=== PATIENT | male | born 1990 | race Caucasian/White ===

== ENCOUNTER 2016-10-19 09:41 | Emergency (ER) | payer OTHER ==
[~2016-10-19] VITALS: Ht 195.6 cm; Wt 114.0 kg
[~2016-10-19 09:41] MED LIST: ALBUAER3 INH; BACT800T5 PO; FAMO1TAB37 PO; MEDR4PAK PO
[2016-10-19 09:45] VITALS: BP 151/106; PULSE 104; RESP 16; TEMP 98.1; O2SAT 98
--- NOTE | 2016-10-19 10:09 | PD ---
HPI Chief Complaint: Cardiac Complaint Time Seen by Provider: 09:58 Travel History International Travel<30 days: No Contact w/Intl Traveler<30days: No Traveled to known affect area: No History of Present Illness HPI This patient was out shopping with his mother when he had a 5 minute spell. He became dizzy and lightheaded and felt like his heart was racing. Somewhat anxious. He reported being short of breath. He has history of asthma. No fever or injury. No syncope. This point he feels much better. No alleviating factors. Symptoms were moderately severe but now are nonexistent. PFSH Past Medical History Hx Anticoagulant Therapy: No Asthma: Yes Diabetes: No Diminished Hearing: No Respiratory: Yes (ASTHMA IN PAST ) Tetanus Vaccination: < 5 Years Influenza Vaccination: No Past Surgical History Other Surgery: Yes (Skull SX as infant ) Social History Alcohol Use: No Tobacco Use: No Substance Use: No Allergies-Medications (Allergen,Severity, Reaction): Coded Allergies: Neosporin (Verified Adverse Reaction, Severe, Skin blisters , 10/19/16) Reported Meds & Prescriptions Reported Meds & Active Scripts Active No Active Prescriptions or Reported Medications Review of Systems General / Constitutional: No: Fever Eyes: No: Visual changes HENT: Positive: Lightheadedness, No: Headaches Cardiovascular: Positive: Chest Pain or Discomfort, Palpitations Respiratory: Positive: Shortness of Breath (who will), Wheezing Gastrointestinal: No: Abdominal Pain Genitourinary: No: Dysuria Musculoskeletal: No: Pain Skin: No Rash Neurologic: Positive: Dizziness, No: Weakness Psychiatric: No: Depression Endocrine: No: Polydipsia Hematologic/Lymphatic: No: Easy Bruising Physical Exam Narrative GENERAL: Well-nourished, well-developed patient in no apparent distress. SKIN: Focused skin assessment reveals no rash and nodules. Skin is Warm and dry. HEAD: Atraumatic. Normocephalic. EYES: Pupils equal and round. No scleral icterus. No injection or drainage. ENT: No nasal bleeding or discharge. Mucous membranes pink and moist. NECK: Trachea midline. No JVD. CARDIOVASCULAR: Regular rate and rhythm. No murmur appreciated. RESPIRATORY: No accessory muscle use. Clear to auscultation. Breath sounds equal bilaterally. GASTROINTESTINAL: Abdomen soft, non-tender, nondistended. Hepatic and splenic margins not palpable. MUSCULOSKELETAL: No obvious deformities. No clubbing. No cyanosis. No edema. NEUROLOGICAL: Awake and alert. No obvious cranial nerve deficits. Motor grossly within normal limits. Normal speech. PSYCHIATRIC: Appropriate mood and affect; insight and judgment normal. Data Data Last Documented VS Vital Signs Date Time Temp Pulse Resp B/P Pulse Ox O2 Delivery O2 Flow Rate FiO2 10/19/16 10:15 98 Room Air 10/19/16 09:50 16 10/19/16 09:45 98.1 104 151/106 Orders Basic Metabolic Panel (Bmp) (10/19/16 10:05) Complete Blood Count With Diff (10/19/16 10:05) Ckmb (Isoenzyme) Profile (10/19/16 10:05) Troponin I (10/19/16 10:05) Ecg Monitoring (10/19/16 10:05) Iv Access Insert/Monitor (10/19/16 10:05) Oximetry (10/19/16 10:05) Sodium Chloride 0.9% Flush (Ns Flush) (10/19/16 10:15) Labs Laboratory Tests Test 10/19/16 10:00 White Blood Count 9.1 TH/MM3 Red Blood Count 5.76 MIL/MM3 Hemoglobin 16.3 GM/DL Hematocrit 48.1 % Mean Corpuscular Volume 83.5 FL Mean Corpuscular Hemoglobin 28.2 PG Mean Corpuscular Hemoglobin 33.8 % Concent Red Cell Distribution Width 12.4 % Platelet Count 352 TH/MM3 Mean Platelet Volume 6.8 FL Neutrophils (%) (Auto) 62.6 % Lymphocytes (%) (Auto) 28.0 % Monocytes (%) (Auto) 6.5 % Eosinophils (%) (Auto) 2.0 % Basophils (%) (Auto) 0.9 % Neutrophils # (Auto) 5.6 TH/MM3 Lymphocytes # (Auto) 2.6 TH/MM3 Monocytes # (Auto) 0.6 TH/MM3 Eosinophils # (Auto) 0.2 TH/MM3 Basophils # (Auto) 0.1 TH/MM3 CBC Comment DIFF FINAL Differential Comment Sodium Level 141 MEQ/L Potassium Level 4.0 MEQ/L Chloride Level 104 MEQ/L Carbon Dioxide Level 28.0 MEQ/L Anion Gap 9 MEQ/L Blood Urea Nitrogen 15 MG/DL Creatinine 1.10 MG/DL Estimat Glomerular Filtration 80 ML/MIN Rate Random Glucose 97 MG/DL Calcium Level 9.0 MG/DL Total Creatine Kinase 75 U/L Troponin I LESS THAN 0.02 NG/ML MDM Medical Decision Making Medical Screen Exam Complete: Yes Emergency Medical Condition: Yes Medical Record Reviewed: Yes Differential Diagnosis Asthma, cardiac arrhythmia, vasovagal episode, anxiety Narrative Course I have reviewed the patient's electronic medical record. Patient was seen in May 2016 for asthma exacerbation IV placed I reviewed his EKG which shows sinus rhythm without ectopy or ST elevation Extended cardiac monitoring reveals sinus rhythm without ectopy CBC is normal Metabolic profile is normal CK is normal Troponin is normal On recheck the patient is a symptomatically doing well. Stable for outpatient follow-up with his family physician He had a presyncopal episode of unknown etiology but no objective evidence of anything dangerous at this point I don't feel at age 26 with no cardiac history he requires inpatient evaluation for this Diagnosis Primary Impression: Pre-syncope Additional Impressions: Chest pain in adult Shortness of breath Additional Instructions: The patient was advised to follow up with their physician and return if they worsen. Med/Other Pt SpecificInfo: Other Scripts No Active Prescriptions or Reported Meds Disposition: 01 DISCHARGE HOME Condition: Stable Fabian Lopez MD Oct 19, 2016 10:09
[2016-10-19 10:15] VITALS: O2SAT 98
[2016-10-19] MEDS ORDERED: SODIUM CHLORIDE 0.9% FLUSH 10 ML FLUSH IVF PRN (10:15)
[2016-10-19 10:18] LABS: AUTOMATED NEUTROPHIL # 5.6 TH/MM3 (1.8-7.7); BASOPHIL # 0.1 TH/MM3 (0-0.2); BASOPHIL % 0.9 % (0.0-2.0); EOSINOPHIL # 0.2 TH/MM3 (0-0.4); HEMATOCRIT 48.1 % (39.0-51.0); HEMO FLAGS DIFF FINAL; LYMPHOCYTE # 2.6 TH/MM3 (1.0-4.8); MEAN CELL VOLUME 83.5 FL (80.0-100.0); MEAN CORPUSCULAR HEMOGLOBIN 28.2 PG (27.0-34.0); MEAN CORPUSCULAR HGB CONC 33.8 % (32.0-36.0); MONO % 6.5 % (0.0-8.0); NEUT % 62.6 % (16.0-70.0); PLATELET COUNT 352 TH/MM3 (150-450); RED BLOOD COUNT 5.76 MIL/MM3 (4.50-5.90); RED CELL DISTRIBUTION WIDTH 12.4 % (11.6-17.2); WHITE BLOOD COUNT 9.1 TH/MM3 (4.0-11.0)
[2016-10-19 10:30] LABS: CHLORIDE 104 MEQ/L (98-107); SODIUM (NA) 141 MEQ/L (136-145)
[2016-10-19 10:33] LABS: ANION GAP 9 MEQ/L (5-15); BLOOD UREA NITROGEN 15 MG/DL (7-18)
[2016-10-19 10:36] LABS: GLOMERULAR FILTRATION RATE 80 ML/MIN (>89)
[2016-10-19 10:50] LABS: CREATINE KINASE 75 U/L (39-308)
[2016-10-19 11:00] VITALS: BP 140/89; PULSE 88; RESP 16; O2SAT 98
--- NOTE | 2016-10-21 15:36 | EKG ---
Date Performed: 10/19/2016 Time Performed: 09:49:46 PTAGE: 26 years EKG: Sinus tachycardia Poor R wave progression - probable normal variant Since previous tracing, no significant change noted Borderline ECG PREVIOUS TRACING : 10/07/2014 17.48 DOCTOR: Clark Concepcion Interpretating Date/Time 10/21/2016 15:34:30
[2016-11-22] MEDS ORDERED: ALBU6.7H INH (15:33)
== END 2016-10-19 11:10 | disposition home or self-care (01) ==
LOC: PHED 09:41
DX: R55 Syncope and collapse (principal); R07.9 Chest pain, unspecified; R06.02 Shortness of breath; R00.0 Tachycardia, unspecified
CPT/HCPCS: 80048; 82550; 84484; 85025; 93005; 99284

== ENCOUNTER 2017-04-06 10:39 | Emergency (ER) | payer OTHER ==
[~2017-04-06] VITALS: Ht 193 cm; Wt 112.2 kg
[~2017-04-06 10:39] MED LIST changes: +ALBU6.7H INH; -ALBUAER3 INH; -BACT800T5 PO; -FAMO1TAB37 PO; -MEDR4PAK PO
[2017-04-06 10:49] VITALS: BP 160/97; PULSE 102; RESP 16; TEMP 98.1; O2SAT 100
--- NOTE | 2017-04-06 11:35 | PD ---
HPI Chief Complaint: Dizziness Time Seen by Provider: 11:28 Travel History International Travel<30 days: No Contact w/Intl Traveler<30days: No Traveled to known affect area: No History of Present Illness HPI This 27-year-old male says about an hour ago he had a fairly abrupt onset of lightheadedness and shortness of breath. He has had asthma in the past but he says it didn't really feel like his asthma. He does not have any chest pain he does not smoke. A little bit lightheadedness now but he does feel a bit better. He did not have any chest pain. PFSH Past Medical History Hx Anticoagulant Therapy: No Asthma: Yes Diabetes: No Diminished Hearing: No Respiratory: Yes (ASTHMA IN PAST ) Influenza Vaccination: No ?: Not Past Surgical History Other Surgery: Yes (Skull SX as ) Social History Alcohol Use: No Tobacco Use: No Substance Use: No Allergies-Medications (Allergen,Severity, Reaction): Coded Allergies: bacitracin (Unverified Adverse Reaction, Severe, Skin blisters , 04/06/17) gramicidin D (Unverified Adverse Reaction, Severe, Skin blisters , 04/06/17 ) neomycin (Unverified Adverse Reaction, Severe, Skin blisters , 04/06/17) polymyxin B (Unverified Adverse Reaction, Severe, Skin blisters , 04/06/17) Reported Meds & Prescriptions Reported Meds & Active Scripts Active Review of Systems General / Constitutional: No: Fever, Chills Eyes: No: Diploplia, Blurred Vision HENT: Positive: Lightheadedness, No: Headaches, Vertigo Cardiovascular: No: Chest Pain or Discomfort Respiratory: Positive: Shortness of Breath Gastrointestinal: No: Nausea, Vomiting Genitourinary: No: Urgency, Frequency Musculoskeletal: No: Myalgias, Arthralgias Hematologic/Lymphatic: No: Easy Bruising Physical Exam Narrative GENERAL: Well-developed male SKIN: Focused skin assessment warm/dry. HEAD: Atraumatic. Normocephalic. EYES: Pupils equal and round. No scleral icterus. No injection or drainage. ENT: No nasal bleeding or discharge. Mucous membranes pink and moist. NECK: Trachea midline. No JVD. CARDIOVASCULAR: Regular rate and rhythm. No murmur appreciated. RESPIRATORY: No accessory muscle use. Clear to auscultation. Breath sounds equal bilaterally. GASTROINTESTINAL: Abdomen soft, non-tender, nondistended. Hepatic and splenic margins not palpable. MUSCULOSKELETAL: No obvious deformities. No clubbing. No cyanosis. No edema. NEUROLOGICAL: Awake and alert. No obvious cranial nerve deficits. Motor grossly within normal limits. Normal speech. PSYCHIATRIC: Appropriate mood and affect; insight and judgment normal. Data Data Last Documented VS Vital Signs Date Time Temp Pulse Resp B/P (MAP) Pulse Ox O2 Delivery O2 Flow Rate FiO2 04/06/17 11:30 18 96 Room Air 04/06/17 10:49 98.1 102 160/97 (118) Orders Orders Complete Blood Count With Diff (04/06/17 11:33) Basic Metabolic Panel (Bmp) (04/06/17 11:33) Chest, Single Ap (04/06/17 11:33) Labs Laboratory Tests Test 04/06/17 11:40 White Blood Count 9.0 TH/MM3 Red Blood Count 5.55 MIL/MM3 Hemoglobin 16.1 GM/DL Hematocrit 47.4 % Mean Corpuscular Volume 85.5 FL Mean Corpuscular Hemoglobin 29.0 PG Mean Corpuscular Hemoglobin Concent 34.0 % Red Cell Distribution Width 12.8 % Platelet Count 378 TH/MM3 Mean Platelet Volume 7.0 FL Neutrophils (%) (Auto) 65.6 % Lymphocytes (%) (Auto) 26.3 % Monocytes (%) (Auto) 6.0 % Eosinophils (%) (Auto) 1.0 % Basophils (%) (Auto) 1.1 % Neutrophils # (Auto) 5.9 TH/MM3 Lymphocytes # (Auto) 2.4 TH/MM3 Monocytes # (Auto) 0.5 TH/MM3 Eosinophils # (Auto) 0.1 TH/MM3 Basophils # (Auto) 0.1 TH/MM3 CBC Comment DIFF FINAL Differential Comment Blood Urea Nitrogen 13 MG/DL Creatinine 0.99 MG/DL Random Glucose 100 MG/DL Calcium Level 9.4 MG/DL Sodium Level 139 MEQ/L Potassium Level 4.1 MEQ/L Chloride Level 104 MEQ/L Carbon Dioxide Level 28.7 MEQ/L Anion Gap 6 MEQ/L Estimat Glomerular Filtration Rate 89 ML/MIN MDM Medical Decision Making Medical Screen Exam Complete: Yes Emergency Medical Condition: Yes Medical Record Reviewed: Yes Differential Diagnosis Differential includes asthma, URI, anxiety Narrative Course Lab work is normal. Chest x-ray is negative. His oxygen saturation is under percent. He does appear somewhat anxious and I suspect this may be related to anxiety. He reports feeling somewhat better and I don't think an anxiolytic is needed at this time. He is stable for discharge Diagnosis Primary Impression: Dyspnea Additional Instructions: Return as needed Disposition: 01 DISCHARGE HOME Condition: Stable Tom Fowler MD Apr 06, 2017 11:35
[2017-04-06 11:50] LABS: AUTOMATED NEUTROPHIL # 5.9 TH/MM3 (1.8-7.7); BASOPHIL # 0.1 TH/MM3 (0-0.2); BASOPHIL % 1.1 % (0.0-2.0); EOSINOPHIL # 0.1 TH/MM3 (0-0.4); HEMATOCRIT 47.4 % (39.0-51.0); LYMPH % 26.3 % (9.0-44.0); LYMPHOCYTE # 2.4 TH/MM3 (1.0-4.8); MEAN CELL VOLUME 85.5 FL (80.0-100.0); NEUT % 65.6 % (16.0-70.0); PLATELET COUNT 378 TH/MM3 (150-450); RED BLOOD COUNT 5.55 MIL/MM3 (4.50-5.90); RED CELL DISTRIBUTION WIDTH 12.8 % (11.6-17.2)
[2017-04-06 11:54] LABS: HEMO FLAGS DIFF FINAL
[2017-04-06 12:00] LABS: POTASSIUM 4.1 MEQ/L (3.5-5.1)
[2017-04-06 12:03] LABS: BICARBONATE 28.7 MEQ/L (21.0-32.0)
--- NOTE | 2017-04-06 12:18 | RADRPT ---
EXAM DATE/TIME: 04/06/2017 12:09 [facility] COMPARISON: CHEST PA & LAT, October 07, 2014, 17:53. INDICATIONS : Short of breath MEDICAL HISTORY : None. SURGICAL HISTORY : None. ENCOUNTER: Initial ACUITY: 1 day PAIN SCORE: 0/10 LOCATION: Bilateral chest FINDINGS: A single view of the chest demonstrates the lungs to be symmetrically aerated without evidence of mas s, infiltrate or effusion. The cardiomediastinal contours are unremarkable. Osseous structures are intact. CONCLUSION: 1. No acute cardiopulmonary findings. Tay Best MD on April 06, 2017 at 12:16 Board Certified Radiologist. This report was verified electronically.
[2017-04-06 12:30] VITALS: BP 128/81; PULSE 78; RESP 16; O2SAT 97
== END 2017-04-06 13:25 | disposition home or self-care (01) ==
LOC: PHED 10:39
DX: R06.00 Dyspnea, unspecified (principal); R42 Dizziness and giddiness; Z87.09 Personal history of other diseases of the respiratory system
CPT/HCPCS: 71010; 80048; 85025; 99284

== ENCOUNTER 2017-06-07 15:59 | Emergency (ER) | payer OTHER ==
[~2017-06-07 15:59] MED LIST changes: -ALBU6.7H INH; +CLAR10CA3 PO; +SERT-132 PO
[2017-06-07 16:13] VITALS: BP 143/100; PULSE 108; RESP 18; TEMP 97.8; O2SAT 100
[2017-06-07] MEDS ORDERED: SODIUM CHLOR 0.9% 1000 ML INJ 1,000 ML IV SCH (16:24)
[2017-06-07] MEDS ORDERED: hydrOXYzine PAMOATE 25 MG CAP PO ONE (16:30)
[2017-06-07] MEDS ORDERED: SODIUM CHLORIDE 0.9% FLUSH 10 ML FLUSH IV FLUSH PRN (16:30)
--- NOTE | 2017-06-07 16:37 | PD ---
HPI Chief Complaint: Abdominal Pain Time Seen by Provider: 16:12 Travel History International Travel<30 days: No Contact w/Intl Traveler<30days: No History of Present Illness HPI patient is a 27-year-old male presents emergency department for evaluation of epigastric and left upper quadrant abdominal pain started last night. Also complains of some shortness of breath palpitations and minimal tachycardia. He states his symptoms are moderate in severity, gradually worsening associate with some nausea without vomiting no diarrhea no constipation. No history of long trips or blood clots in his arms or legs. States his symptoms have never happened to him before. Pain is cramping in nature, intermittent, associated signs symptoms as above, no alleviating or exacerbating factors. PFSH Past Medical History Hx Anticoagulant Therapy: No Asthma: Yes Diabetes: No Diminished Hearing: No Respiratory: Yes (ASTHMA IN PAST ) Past Surgical History Other Surgery: Yes (Skull SX as ) Social History Alcohol Use: No Tobacco Use: No Substance Use: No Allergies-Medications (Allergen,Severity, Reaction): Coded Allergies: bacitracin (Unverified Adverse Reaction, Severe, Skin blisters , 05/02/17) gramicidin D (Unverified Adverse Reaction, Severe, Skin blisters , ) neomycin (Unverified Adverse Reaction, Severe, Skin blisters , 05/02/17) polymyxin B (Unverified Adverse Reaction, Severe, Skin blisters , 05/02/17 ) Reported Meds & Prescriptions Reported Meds & Active Scripts Active Sertraline (Sertraline HCl) 50 Mg Tab 50 Mg PO DAILY Claritin (Loratadine) 10 Mg Cap 10 Mg PO DAILY Review of Systems Except as stated in HPI: all other systems reviewed are Neg Physical Exam Narrative GENERAL: Well-developed well-nourished no obvious distress SKIN: Focused skin assessment warm/dry. HEAD: Atraumatic. Normocephalic. EYES: Pupils equal and round. No scleral icterus. No injection or drainage. ENT: No nasal bleeding or discharge. Mucous membranes pink and moist. NECK: Trachea midline. No JVD. CARDIOVASCULAR: Regular rate and rhythm. No murmur appreciated. RESPIRATORY: No accessory muscle use. Clear to auscultation. Breath sounds equal bilaterally. GASTROINTESTINAL: Abdomen soft, non-tender, nondistended. Hepatic and splenic margins not palpable. No rebound no percussive tenderness no guarding. MUSCULOSKELETAL: No obvious deformities. No clubbing. No cyanosis. No edema. NEUROLOGICAL: Awake and alert. No obvious cranial nerve deficits. Motor grossly within normal limits. Normal speech. PSYCHIATRIC: Appropriate mood and affect; insight and judgment normal. Data Data Last Documented VS Vital Signs Date Time Temp Pulse Resp B/P (MAP) Pulse Ox O2 Delivery O2 Flow Rate FiO2 06/07/17 18:53 85 18 140/76 (97) 98 06/07/17 17:34 Room Air 06/07/17 16:13 97.8 Orders Orders Complete Blood Count With Diff (06/07/17 16:24) Comprehensive Metabolic Panel (06/07/17 16:24) Lipase (06/07/17 16:24) Urinalysis - C+S If Indicated (06/07/17 16:24) Iv Access Insert/Monitor (06/07/17 16:24) Ecg Monitoring (06/07/17 16:24) Oximetry (06/07/17 16:24) Sodium Chlor 0.9% 1000 Ml Inj (Ns 1000 M (06/07/17 16:24) Sodium Chloride 0.9% Flush (Ns Flush) (06/07/17 16:30) Hydroxyzine Pamoate (Vistaril) (06/07/17 16:30) D-Dimer (06/07/17 16:24) Ed Discharge Order (06/07/17 18:04) Electrocardiogram (06/07/17 16:05) Labs Laboratory Tests Test 06/07/17 16:45 06/07/17 16:50 Urine Collection Type CLEAN CATCH Urine Color YELLOW Urine Turbidity CLEAR Urine pH 5.5 Urine Specific [place] 1.030 Urine Protein NEG mg/dL Urine Glucose (UA) NEG mg/dL Urine Ketones 15 mg/dL Urine Occult Blood NEG Urine Nitrite NEG Urine Bilirubin NEG Urine Leukocyte Esterase NEG Urine WBC 0-2 /hpf Microscopic Urinalysis Comment CULT NOT INDICATED Urine Collection Time 1645 White Blood Count 10.8 TH/MM3 Red Blood Count 5.57 MIL/MM3 Hemoglobin 15.6 GM/DL Hematocrit 47.0 % Mean Corpuscular Volume 84.3 FL Mean Corpuscular Hemoglobin 27.9 PG Mean Corpuscular Hemoglobin Concent 33.1 % Red Cell Distribution Width 12.7 % Platelet Count 349 TH/MM3 Mean Platelet Volume 6.9 FL Neutrophils (%) (Auto) 68.0 % Lymphocytes (%) (Auto) 24.9 % Monocytes (%) (Auto) 5.7 % Eosinophils (%) (Auto) 0.7 % Basophils (%) (Auto) 0.7 % Neutrophils # (Auto) 7.3 TH/MM3 Lymphocytes # (Auto) 2.7 TH/MM3 Monocytes # (Auto) 0.6 TH/MM3 Eosinophils # (Auto) 0.1 TH/MM3 Basophils # (Auto) 0.1 TH/MM3 CBC Comment DIFF FINAL Differential Comment D-Dimer Quantitative (PE/DVT) LESS THAN 0.19 MG/L FEU Blood Urea Nitrogen 13 MG/DL Creatinine 1.00 MG/DL Random Glucose 104 MG/DL Total Protein 8.5 GM/DL Albumin 4.2 GM/DL Calcium Level 9.1 MG/DL Alkaline Phosphatase 104 U/L Aspartate Amino Transf (AST/SGOT) 23 U/L Alanine Aminotransferase (ALT/SGPT) 63 U/L Total Bilirubin 0.7 MG/DL Sodium Level 139 MEQ/L Potassium Level 3.5 MEQ/L Chloride Level 104 MEQ/L Carbon Dioxide Level 28.6 MEQ/L Anion Gap 6 MEQ/L Estimat Glomerular Filtration Rate 88 ML/MIN Lipase 92 U/L MDM Medical Decision Making Medical Screen Exam Complete: Yes Emergency Medical Condition: Yes Differential Diagnosis Epigastric pain, reflux, pancreatitis, cholecystitis, with the shortness of breath consider PE but highly unlikely. Narrative Course Patient roomed in emergency department, I returned workup unremarkable, mom volunteers that she thinks the patient is just anxious, he was given Benadryl and normal saline tachycardia resolved and patient is feeling better. He is stable for discharge no additional workup is indicated at this time. Discussed symptomatically management follow-up with a primary care physician. Diagnosis Primary Impression: Epigastric abdominal pain Patient Instructions: Abdominal Pain in Children (DC), General Instructions Med/Other Pt SpecificInfo: Prescription(s) given Disposition: 01 DISCHARGE HOME Condition: Stable Manolo Tyler MD Jun 07, 2017 16:37
[2017-06-07 16:50] VITALS: O2SAT 96
[2017-06-07 17:05] LABS: BLOOD, URINE NEG (NEG); GLUCOSE,URINE NEG (NEG); KETONE, URINE 15 mg/dL (NEG); NITRITE,URINE NEG (NEG); PH, URINE 5.5 (5.0-8.5)
[2017-06-07 17:07] LABS: AUTOMATED NEUTROPHIL # 7.3 TH/MM3 (1.8-7.7); BASOPHIL # 0.1 TH/MM3 (0-0.2); BASOPHIL % 0.7 % (0.0-2.0); EOSINOPHIL # 0.1 TH/MM3 (0-0.4); EOSINOPHIL % 0.7 % (0.0-4.0); HEMO FLAGS DIFF FINAL; LYMPH % 24.9 % (9.0-44.0); LYMPHOCYTE # 2.7 TH/MM3 (1.0-4.8); MEAN CELL VOLUME 84.3 FL (80.0-100.0); MEAN CORPUSCULAR HEMOGLOBIN 27.9 PG (27.0-34.0); MEAN CORPUSCULAR HGB CONC 33.1 % (32.0-36.0); MONO % 5.7 % (0.0-8.0); PLATELET COUNT 349 TH/MM3 (150-450); RED BLOOD COUNT 5.57 MIL/MM3 (4.50-5.90); RED CELL DISTRIBUTION WIDTH 12.7 % (11.6-17.2); WHITE BLOOD COUNT 10.8 TH/MM3 (4.0-11.0)
[2017-06-07 17:13] LABS: METHOD OF COLLECTION CLEAN CATCH; URINE COLOR YELLOW (YELLW/STRAW)
[2017-06-07 17:14] LABS: COMMENT (UR) CULT NOT INDICATED; CULTURE IF INDICATED CULT NOT INDICATED; WBC, URINE 0-2 /hpf (0-5)
[2017-06-07 17:15] LABS: CHLORIDE 104 MEQ/L (98-107); POTASSIUM 3.5 MEQ/L (3.5-5.1); SODIUM (NA) 139 MEQ/L (136-145)
[2017-06-07 17:18] LABS: ANION GAP 6 MEQ/L (5-15); BICARBONATE 28.6 MEQ/L (21.0-32.0)
[2017-06-07 17:19] LABS: BLOOD UREA NITROGEN 13 MG/DL (7-18)
[2017-06-07 17:21] LABS: ALT (GPT) 63 U/L (12-78); AST (GOT) 23 U/L (15-37); GLOMERULAR FILTRATION RATE 88 ML/MIN (>89)
[2017-06-07 17:23] LABS: TOTAL BILIRUBIN ADULT 0.7 MG/DL (0.2-1.0)
[2017-06-07 17:24] LABS: ALKALINE PHOSPHATASE 104 U/L (45-117)
[2017-06-07 17:34] VITALS: BP 136/83; PULSE 90; RESP 18; O2SAT 96
[2017-06-07 18:53] VITALS: BP 140/76
--- NOTE | 2017-06-09 23:23 | EKG ---
Date Performed: 06/07/2017 Time Performed: 16:05:28 PTAGE: 27 years EKG: SINUS TACHYCARDIA VOLTAGE CRITERIA FOR LVH ABNORMAL ECG NO PREVIOUS TRACING DOCTOR: Grabiel Cueto Interpretating Date/Time 06/09/2017 23:22:44
== END 2017-06-07 18:56 | disposition home or self-care (01) ==
LOC: PHED 15:59
DX: R10.13 Epigastric pain (principal); R10.12 Left upper quadrant pain; R06.02 Shortness of breath; R00.2 Palpitations; R00.0 Tachycardia, unspecified; R11.0 Nausea; R94.31 Abnormal electrocardiogram [ECG] [EKG]; Z87.09 Personal history of other diseases of the respiratory system
CPT/HCPCS: 80053; 81001; 83690; 85025; 85379; 93005; 96360; 99284; J7030; Q0177

== ENCOUNTER 2017-06-12 18:57 | Emergency (ER) | payer OTHER ==
[2017-06-12 19:10] VITALS: BP 150/102; PULSE 88; RESP 18; TEMP 98.4
--- NOTE | 2017-06-12 19:36 | PD ---
HPI Chief Complaint: ENT Complaint Time Seen by Provider: 19:24 Travel History International Travel<30 days: No Contact w/Intl Traveler<30days: No Traveled to known affect area: No History of Present Illness HPI 27-year-old male presents to the emergency department complaining lightheadedness and tightness in the throat for 3-4 days. Patient states that he is also had some mild pain in the jaw. States the symptoms started 3-4 days ago after starting sertraline. Patient denies fever, chills, chest pain, shortness of breath, nausea, vomiting, diarrhea. Also denies cough or congestion. States his family care physician prescribed this medication for his anxiety. Denies taking any other medications at this time. States he is able to eat normally without issues. PFSH Past Medical History Hx Anticoagulant Therapy: No Asthma: Yes Diabetes: No Diminished Hearing: No Respiratory: Yes (ASTHMA IN PAST ) Past Surgical History Other Surgery: Yes (Skull SX as ) Social History Alcohol Use: No Tobacco Use: No Substance Use: No Allergies-Medications (Allergen,Severity, Reaction): Coded Allergies: bacitracin (Unverified Adverse Reaction, Severe, Skin blisters , 05/02/17) gramicidin D (Unverified Adverse Reaction, Severe, Skin blisters , ) neomycin (Unverified Adverse Reaction, Severe, Skin blisters , 05/02/17) polymyxin B (Unverified Adverse Reaction, Severe, Skin blisters , 05/02/17 ) Reported Meds & Prescriptions Reported Meds & Active Scripts Active Sertraline (Sertraline HCl) 50 Mg Tab 50 Mg PO DAILY Claritin (Loratadine) 10 Mg Cap 10 Mg PO DAILY Review of Systems Except as stated in HPI: all other systems reviewed are Neg Physical Exam Narrative GENERAL: Well-developed well-nourished in no apparent distress SKIN: Focused skin assessment warm/dry. HEAD: Atraumatic. Normocephalic. EYES: Pupils equal and round. No scleral icterus. No injection or drainage. ENT: No nasal bleeding or discharge. Mucous membranes pink and moist. NECK: Trachea midline. No JVD. Mild tension in the anterior sternocleidomastoid muscles CARDIOVASCULAR: Regular rate and rhythm. No murmur appreciated. RESPIRATORY: No accessory muscle use. Clear to auscultation. Breath sounds equal bilaterally. GASTROINTESTINAL: Abdomen soft, non-tender, nondistended. MUSCULOSKELETAL: No obvious deformities. No clubbing. No cyanosis. No edema. NEUROLOGICAL: Awake and alert. No obvious cranial nerve deficits. Motor grossly within normal limits. Normal speech. PSYCHIATRIC: Appropriate mood.; insight and judgment normal. Data Data Last Documented VS Vital Signs Date Time Temp Pulse Resp B/P (MAP) Pulse Ox O2 Delivery O2 Flow Rate FiO2 06/12/17 20:00 06/12/17 19:39 62 18 83 18 82 19 06/12/17 19:10 98.4 Orders Orders Orthostatic Vital Signs (06/12/17 19:32) Ed Discharge Order (06/12/17 19:47) MDM Medical Decision Making Medical Screen Exam Complete: Yes Emergency Medical Condition: Yes Differential Diagnosis Adverse side effects to medication versus serotonin syndrome versus upper respiratory infection Narrative Course 27-year-old male presents to the emergency department complaining lightheadedness and tightness in the throat for 3-4 days. Patient states that he is also had some mild pain in the jaw. States the symptoms started 3-4 days ago after starting sertraline. Patient denies fever, chills, weakness, chest pain, shortness of breath, heart palpitations, nausea, vomiting, diarrhea. Also denies cough or congestion. States his lightheadedness occurs upon standing and last 15 seconds then goes away. Denies trauma States his family care physician prescribed this medication for his anxiety. Denies taking any other medications at this time. States he is able to eat normally without issues. Denies any other medical issues at this time. There is no evidence of cardiac or pulmonary involvement. No evidence of cranial nerve involvement. Orthostatic vital signs within normal limits Because of patient's onset of symptoms and medication use, I suspect that his symptoms are related to sertraline. Upon exam patient is no apparent distress, ambulatory. Mildly dry mucous membranes, mild muscle tension of sternocleidomastoid muscles with full range of motion of head and neck. Patient states compliance with medication and good fluid and oral intake. Patient advised follow-up with primary care physician as soon as possible for medication adjustment. Patient and mother understood and will comply. Advised to return to emergency department for worsening or persistent symptoms. Diagnosis Primary Impression: Adverse drug effect Qualified Codes: T88.7XXA - Unspecified adverse effect of drug or medicament, initial encounter Referrals: Primary Care Physician Additional Instructions: Follow-up with primary care physician within 2-3 days. Ensure you have adequate fluid intake. Hold Sertraline until you see your primary care physician. This may be the cause of your symptoms. If your symptoms persist or worsen, return to the emergency department. Disposition: 01 DISCHARGE HOME Condition: Stable Thelma Harris Jun 12, 2017 19:36
[2017-06-12 19:39] VITALS: BP_SYST 131; BP_SYST 133; BP_SYST 140; BP_DIAS 82; BP_DIAS 88; BP_DIAS 95; RESP 18; RESP 19
== END 2017-06-12 20:09 | disposition home or self-care (01) ==
LOC: PHEFT 18:57
DX: T88.7XXA Unspecified adverse effect of drug or medicament, initial encounter (principal); J45.909 Unspecified asthma, uncomplicated; X58.XXXA Exposure to other specified factors, initial encounter
CPT/HCPCS: 99282

== ENCOUNTER 2017-06-26 21:36 | Emergency (ER) | payer OTHER ==
[2017-06-26 21:39] VITALS: BP 148/97; PULSE 86; RESP 20; TEMP 97.7; O2SAT 97
[2017-06-26] MEDS ORDERED: ALBU6.7H INH (22:02)
[2017-06-26 22:36] LABS: AUTOMATED NEUTROPHIL # 5.5 TH/MM3 (1.8-7.7); BASOPHIL # 0.1 TH/MM3 (0-0.2); BASOPHIL % 1.4 % (0.0-2.0); EOSINOPHIL # 0.1 TH/MM3 (0-0.4); EOSINOPHIL % 1.4 % (0.0-4.0); HEMATOCRIT 46.1 % (39.0-51.0); HEMOGLOBIN 15.6 GM/DL (13.0-17.0); LYMPH % 31.2 % (9.0-44.0); LYMPHOCYTE # 2.9 TH/MM3 (1.0-4.8); MEAN CELL VOLUME 83.7 FL (80.0-100.0); MEAN CORPUSCULAR HEMOGLOBIN 28.3 PG (27.0-34.0); MEAN CORPUSCULAR HGB CONC 33.8 % (32.0-36.0); MEAN PLATELET VOLUME 6.9 FL (7.0-11.0); MONO % 5.4 % (0.0-8.0); MONOCYTE # 0.5 TH/MM3 (0-0.9); NEUT % 60.6 % (16.0-70.0); PLATELET COUNT 375 TH/MM3 (150-450); RED BLOOD COUNT 5.51 MIL/MM3 (4.50-5.90); RED CELL DISTRIBUTION WIDTH 12.4 % (11.6-17.2); WHITE BLOOD COUNT 9.1 TH/MM3 (4.0-11.0)
--- NOTE | 2017-06-26 22:38 | PD ---
HPI Chief Complaint: Chest Pain Time Seen by Provider: 21:53 Travel History International Travel<30 days: No Contact w/Intl Traveler<30days: No Traveled to known affect area: No History of Present Illness HPI pt had SOB and CP for 24 hrs , it started 2 days after a flight from [place] . He returned 3 days ago . pt has had a panic aattck in the past 2 months ago and was started on Zoloft but it made him feel tightness in his throat , pt has no DM no CAD father did have stents at age 55 , pt denies drugs no stimulants and no URI like Sx , took nothing for the pain , still feels it in his chest. EKG and labs sent , pt appears nervous , socially awkwards , mother bedside PFSH Past Medical History Hx Anticoagulant Therapy: No Asthma: Yes Diabetes: No Diminished Hearing: No Respiratory: Yes (ASTHMA IN PAST ) Past Surgical History Other Surgery: Yes (SKULL SURGERY AT ) Social History Alcohol Use: No Tobacco Use: No Substance Use: No Allergies-Medications (Allergen,Severity, Reaction): Coded Allergies: bacitracin (Unverified Adverse Reaction, Severe, Skin blisters , 06/26/17) gramicidin D (Unverified Adverse Reaction, Severe, Skin blisters , ) neomycin (Unverified Adverse Reaction, Severe, Skin blisters , 06/26/17) polymyxin B (Unverified Adverse Reaction, Severe, Skin blisters , 06/26/17 ) Reported Meds & Prescriptions Reported Meds & Active Scripts Active Ativan (Lorazepam) 0.5 Mg Tab 0.5 Mg PO Q8H PRN Ativan (Lorazepam) 0.5 Mg Tab 0.5 Mg PO Q6H PRN Sertraline (Sertraline HCl) 50 Mg Tab 50 Mg PO DAILY Claritin (Loratadine) 10 Mg Cap 10 Mg PO DAILY Reported Proventil Hfa 6.7 GM Inh (Albuterol Sulfate) 90 Mcg/Act Aer 2 Puff INH Q4-6H PRN Review of Systems Except as stated in HPI: all other systems reviewed are Neg General / Constitutional: No: Fever, Chills HENT: No: Headaches Cardiovascular: Positive: Chest Pain or Discomfort, No: Palpitations, Irregular Rhythm Respiratory: Positive: Shortness of Breath, No: Cough Physical Exam Narrative GENERAL: appears apprehensive and slightly uncomfortable . SKIN: Warm and dry. HEAD: Atraumatic. Normocephalic. EYES: Pupils equal and round. No scleral icterus. No injection or drainage. ENT: No nasal bleeding or discharge. Mucous membranes pink and moist. NECK: Trachea midline. No JVD. CARDIOVASCULAR: Regular rate and rhythm. RESPIRATORY: No accessory muscle use. Clear to auscultation. Breath sounds equal bilaterally. GASTROINTESTINAL: Abdomen soft, non-tender, nondistended. Hepatic and splenic margins not palpable. MUSCULOSKELETAL: Extremities without clubbing, cyanosis, or edema. No obvious deformities. NEUROLOGICAL: Awake and alert. No obvious cranial nerve deficits. Motor grossly within normal limits. Five out of 5 muscle strength in the arms and legs. Normal speech. PSYCHIATRIC: Appropriate mood , affect slightly awkward emotional flat speech ; insight and judgment normal. Data Data Last Documented VS Vital Signs Date Time Temp Pulse Resp B/P (MAP) Pulse Ox O2 Delivery O2 Flow Rate FiO2 06/27/17 00:41 96 20 140/99 (113) 98 06/26/17 21:39 97.7 Orders Orders Electrocardiogram (06/26/17 ) Complete Blood Count With Diff (06/26/17 22:02) Comprehensive Metabolic Panel (06/26/17 22:02) Lipase (06/26/17 22:02) Troponin I (06/26/17 22:02) Chest, Pa & Lat (06/26/17 ) D-Dimer (06/26/17 23:32) Ed Discharge Order (06/27/17 00:21) Labs Laboratory Tests Test 06/26/17 22:30 White Blood Count 9.1 TH/MM3 Red Blood Count 5.51 MIL/MM3 Hemoglobin 15.6 GM/DL Hematocrit 46.1 % Mean Corpuscular Volume 83.7 FL Mean Corpuscular Hemoglobin 28.3 PG Mean Corpuscular Hemoglobin Concent 33.8 % Red Cell Distribution Width 12.4 % Platelet Count 375 TH/MM3 Mean Platelet Volume 6.9 FL Neutrophils (%) (Auto) 60.6 % Lymphocytes (%) (Auto) 31.2 % Monocytes (%) (Auto) 5.4 % Eosinophils (%) (Auto) 1.4 % Basophils (%) (Auto) 1.4 % Neutrophils # (Auto) 5.5 TH/MM3 Lymphocytes # (Auto) 2.9 TH/MM3 Monocytes # (Auto) 0.5 TH/MM3 Eosinophils # (Auto) 0.1 TH/MM3 Basophils # (Auto) 0.1 TH/MM3 CBC Comment DIFF FINAL Differential Comment D-Dimer Quantitative (PE/DVT) 0.25 MG/L FEU Blood Urea Nitrogen 13 MG/DL Creatinine 0.93 MG/DL Random Glucose 123 MG/DL Total Protein 8.1 GM/DL Albumin 3.8 GM/DL Calcium Level 9.2 MG/DL Alkaline Phosphatase 100 U/L Aspartate Amino Transf (AST/SGOT) 19 U/L Alanine Aminotransferase (ALT/SGPT) 57 U/L Total Bilirubin 0.2 MG/DL Sodium Level 139 MEQ/L Potassium Level 3.9 MEQ/L Chloride Level 105 MEQ/L Carbon Dioxide Level 25.0 MEQ/L Anion Gap 9 MEQ/L Estimat Glomerular Filtration Rate 96 ML/MIN Troponin I LESS THAN 0.02 NG/ML Lipase 100 U/L [facility] Medical Decision Making Medical Screen Exam Complete: Yes Emergency Medical Condition: Yes Interpretation(s) EKG 91 BPM NSR CHEST xray normal trop and other labs normal Differential Diagnosis PR vs PE vs PNA vs Anxiety , costochondritis other Narrative Course Labs negative and trop and d-dimer and ekg CXR negative , no finding to indicate ACS or PE safe for d/c , given Rx for ativan to take if symptoms return Diagnosis Primary Impression: Chest pain in adult Patient Instructions: Chest Pain (ED), General Instructions Scripts Lorazepam (Ativan) 0.5 Mg Tab 0.5 MG PO Q8H Y for ANXIETY AND/OR AGITATION, #10 TAB 0 Refills Prov: Dariel Contreras MD 06/27/17 Disposition: 01 DISCHARGE HOME Condition: Good Dariel Contreras MD Jun 26, 2017 22:38
[2017-06-26 22:45] LABS: CHLORIDE 105 MEQ/L (98-107); SODIUM (NA) 139 MEQ/L (136-145)
[2017-06-26 22:48] LABS: CALCIUM 9.2 MG/DL (8.5-10.1)
[2017-06-26 22:49] LABS: ALBUMIN 3.8 GM/DL (3.4-5.0); BLOOD UREA NITROGEN 13 MG/DL (7-18); GLUCOSE,RANDOM 123 MG/DL (74-106); LIPASE 100 U/L (73-393)
[2017-06-26 22:51] LABS: ALT (GPT) 57 U/L (12-78); AST (GOT) 19 U/L (15-37); CREATININE 0.93 MG/DL (0.60-1.30); GLOMERULAR FILTRATION RATE 96 ML/MIN (>89)
[2017-06-26 22:53] LABS: TOTAL BILIRUBIN ADULT 0.2 MG/DL (0.2-1.0); TOTAL PROTEIN 8.1 GM/DL (6.4-8.2)
[2017-06-26 22:54] LABS: ALKALINE PHOSPHATASE 100 U/L (45-117)
[2017-06-26 22:56] LABS: TROPONIN I LESS THAN 0.02 NG/ML (0.02-0.05)
--- NOTE | 2017-06-26 23:09 | RADRPT ---
EXAM DATE/TIME: 06/26/2017 22:14 [facility] COMPARISON: CHEST PA & LAT, October 07, 2014, 17:53. INDICATIONS : Short of breath. MEDICAL HISTORY : None. SURGICAL HISTORY : None. ENCOUNTER: Initial ACUITY: 1 day PAIN SCORE: 0/10 LOCATION: Bilateral chest FINDINGS: PA and lateral views of the chest demonstrate the lungs to be symmetrically aerated without evidence of mass, infiltrate or effusion. The cardiomediastinal contours are unremarkable. Osseous structure s are intact. CONCLUSION: No acute cardiopulmonary disease. Sumanth Bishop MD on June 26, 2017 at 23:07 Board Certified Radiologist. This report was verified electronically.
[2017-06-27] MEDS ORDERED: LORA-392 PO ×2 (00:20→00:28)
[2017-06-27 00:41] VITALS: BP 140/99
--- NOTE | 2017-06-27 15:36 | EKG ---
Date Performed: 06/26/2017 Time Performed: 21:56:41 PTAGE: 27 years EKG: Sinus rhythm VOLTAGE CRITERIA FOR LVH ABNORMAL ECG PREVIOUS TRACING : 06/07/2017 16.05 Compared to prior tracing no significant change DOCTOR: Candelario Hu Interpretating Date/Time 06/27/2017 15:36:03
== END 2017-06-27 00:43 | disposition home or self-care (01) ==
LOC: PHED 21:36
DX: R07.9 Chest pain, unspecified (principal); J45.909 Unspecified asthma, uncomplicated; R94.31 Abnormal electrocardiogram [ECG] [EKG]
CPT/HCPCS: 71020; 80053; 83690; 84484; 85025; 85379; 93005; 99285

== ENCOUNTER 2017-07-25 18:44 | Emergency (ER) | payer OTHER ==
[~2017-07-25 18:44] MED LIST changes: +ALBU6.7H INH; +LORA-392 PO; -SERT-132 PO
[2017-07-25 18:48] VITALS: BP 154/104; PULSE 96; RESP 20; TEMP 98.1; O2SAT 97
[2017-07-29] MEDS ORDERED: VENTAER INH (12:28)
== END 2017-07-25 19:53 | disposition left against medical advice (07) ==
LOC: PHED 18:44
DX: R06.02 Shortness of breath (principal)
CPT/HCPCS: 99281

== ENCOUNTER 2017-07-29 11:06 | Emergency (ER) | payer SELFPAY, OTHER ==
[2017-07-29 11:49] LABS: AUTOMATED NEUTROPHIL # 3.6 TH/MM3 (1.8-7.7); BASOPHIL % 0.7 % (0.0-2.0); EOSINOPHIL # 0.1 TH/MM3 (0-0.4); EOSINOPHIL % 0.8 % (0.0-4.0); HEMATOCRIT 45.2 % (39.0-51.0); HEMO FLAGS DIFF FINAL; HEMOGLOBIN 14.7 GM/DL (13.0-17.0); LYMPH % 34.3 % (9.0-44.0); LYMPHOCYTE # 2.2 TH/MM3 (1.0-4.8); MEAN CELL VOLUME 84.1 FL (80.0-100.0); MEAN CORPUSCULAR HEMOGLOBIN 27.3 PG (27.0-34.0); MEAN CORPUSCULAR HGB CONC 32.4 % (32.0-36.0); MEAN PLATELET VOLUME 6.8 FL (7.0-11.0); MONOCYTE # 0.4 TH/MM3 (0-0.9); NEUT % 57.2 % (16.0-70.0); PLATELET COUNT 371 TH/MM3 (150-450); RED BLOOD COUNT 5.38 MIL/MM3 (4.50-5.90); RED CELL DISTRIBUTION WIDTH 12.7 % (11.6-17.2); WHITE BLOOD COUNT 6.3 TH/MM3 (4.0-11.0)
[2017-07-29 11:56] LABS: CHLORIDE 105 MEQ/L (98-107); POTASSIUM 3.9 MEQ/L (3.5-5.1); SODIUM (NA) 139 MEQ/L (136-145)
[2017-07-29 11:59] LABS: ANION GAP 7 MEQ/L (5-15); BICARBONATE 27.1 MEQ/L (21.0-32.0); BLOOD UREA NITROGEN 15 MG/DL (7-18); CALCIUM 8.9 MG/DL (8.5-10.1); GLUCOSE,RANDOM 105 MG/DL (74-106)
[2017-07-29 12:03] LABS: CREATININE 0.92 MG/DL (0.60-1.30); GLOMERULAR FILTRATION RATE 97 ML/MIN (>89)
[2017-07-29 12:07] LABS: TROPONIN I LESS THAN 0.02 NG/ML (0.02-0.05)
== END 2017-07-29 13:00 | disposition home or self-care (01) ==
LOC: PHED 11:06
DX: J06.9 Acute upper respiratory infection, unspecified (principal); J45.909 Unspecified asthma, uncomplicated; R94.31 Abnormal electrocardiogram [ECG] [EKG]
CPT/HCPCS: 71045; 80048; 84484; 85025; 93005; 99285

== ENCOUNTER 2017-08-08 16:58 | Emergency (ER) | payer SELFPAY ==
[~2017-08-08] VITALS: Ht 195.6 cm; Wt 110.0 kg
[~2017-08-08 16:58] MED LIST changes: -ALBU6.7H INH; -CLAR10CA3 PO; -LORA-392 PO; +VENTAER INH
[2017-08-08 17:01] VITALS: BP 129/89; PULSE 86; RESP 16; TEMP 97.8; O2SAT 98
[2017-08-08] MEDS ORDERED: OSEL60SU PO (18:24)
--- NOTE | 2017-08-08 18:24 | PD ---
HPI Chief Complaint: Cold / Flu Symptoms Time Seen by Provider: 17:39 Travel History International Travel<30 days: No Contact w/Intl Traveler<30days: No Traveled to known affect area: No History Past Medical History Asthma: Yes Diabetes: No Hearing: No Respiratory: Yes (ASTHMA IN PAST ) Tetanus Vaccination: < 5 Years Vision or Eye Problem: Yes (glasses) Past Surgical History Other Surgery: Yes (SKULL SURGERY AT ) Social History Tobacco Use in Home: No Alcohol Use: No Tobacco Use: No Substance Use: No Allergies-Medications (Allergen,Severity, Reaction): Coded Allergies: sertraline (Verified Allergy, Severe, 08/08/17) Throat swelling bacitracin (Unverified Adverse Reaction, Severe, Skin blisters , 08/08/17) gramicidin D (Unverified Adverse Reaction, Severe, Skin blisters , 08/08/17) neomycin (Unverified Adverse Reaction, Severe, Skin blisters , 08/08/17) polymyxin B (Unverified Adverse Reaction, Severe, Skin blisters , 08/08/17) Reported Meds & Prescriptions Reported Meds & Active Scripts Active Prednisone 20 Mg Tab 20 Mg PO BID 5 Days Azithromycin 250 Mg Tab 250 Mg PO DIRECTED Take 2 tabs (500 mg) on day 1 then 1 tab daily x 4 days. Ventolin Hfa 18 GM Inh (Albuterol Sulfate) 90 Mcg/Act Aer 2 Puff INH Q4H PRN Data Data Last Documented VS Vital Signs Date Time Temp Pulse Resp B/P (MAP) Pulse Ox O2 Delivery O2 Flow Rate FiO2 08/08/17 17:01 97.8 86 16 129/89 (102) 98 Orders Orders Influenzae A/B Antigen (08/08/17 17:35) Ed Discharge Order (08/08/17 18:42) MDM Diagnosis Primary Impression: Influenza B Referrals: Primary Care Physician 2 days Additional Instructions: Please return to the ER if condition worsens or any other new concerns. Otherwise make sure that she drinks enough to stay hydrated. Tylenol/Motrin/ Advil/ibuprofen should be given for fever. Take the medication as per the prescription direction. Med/Other Pt SpecificInfo: Prescription(s) given Scripts Prednisone (Prednisone) 20 Mg Tab 20 MG PO BID for 5 Days, #10 TAB 0 Refills Prov: Gerard Driscoll MD 08/08/17 Azithromycin (Azithromycin) 250 Mg Tab 250 MG PO DIRECTED for Infection, #6 TAB 0 Refills Take 2 tabs (500 mg) on day 1 then 1 tab daily x 4 days. Prov: Gerard Driscoll MD 08/08/17 Disposition: 01 DISCHARGE HOME Condition: Stable Primary Care Physician Jeri Gutierrez MD Halpern, Shravanti R. MD Aug 08, 2017 18:24
[2017-08-08] MEDS ORDERED: PRED20 PO (18:43)
[2017-08-08] MEDS ORDERED: AZIT250T3 PO (18:43)
--- NOTE | 2017-08-08 18:46 | PD ---
HPI Chief Complaint: Cold / Flu Symptoms Time Seen by Provider: 17:39 Travel History International Travel<30 days: No Contact w/Intl Traveler<30days: No Traveled to known affect area: No History of Present Illness HPI 27-year-old male that presents to the ED for evaluation of cold-like symptoms. Patient has had cold-like symptoms for about 3 days now. Congestion and cough. Some sore throat as well as well as cough. Patient has a history of asthma. Patient denies an asthma attack at this time. No shortness of breath. No chest pain. Some fevers. Mother was concerned about possible influenza as patient did not of the flu shot this year. No other medical issues. No sick contacts alert and mother who has had a cold but she's getting better. Allergies to Bactrim. No other medical issues at this time. Imaging or bowel movement issues. Per patient he has no pain at this time. Has been taking OTC meds with minimal relief. PFSH Past Medical History Hx Anticoagulant Therapy: No Asthma: Yes Diabetes: No Diminished Hearing: No Respiratory: Yes (ASTHMA IN PAST ) Tetanus Vaccination: < 5 Years Past Surgical History Other Surgery: Yes (SKULL SURGERY AT ) Social History Alcohol Use: No Tobacco Use: No Substance Use: No Allergies-Medications (Allergen,Severity, Reaction): Coded Allergies: sertraline (Verified Allergy, Severe, 08/08/17) Throat swelling bacitracin (Unverified Adverse Reaction, Severe, Skin blisters , 08/08/17) gramicidin D (Unverified Adverse Reaction, Severe, Skin blisters , 08/08/17) neomycin (Unverified Adverse Reaction, Severe, Skin blisters , 08/08/17) polymyxin B (Unverified Adverse Reaction, Severe, Skin blisters , 08/08/17) Reported Meds & Prescriptions Reported Meds & Active Scripts Active Prednisone 20 Mg Tab 20 Mg PO BID 5 Days Azithromycin 250 Mg Tab 250 Mg PO DIRECTED Take 2 tabs (500 mg) on day 1 then 1 tab daily x 4 days. Tamiflu Liq (Oseltamivir Phosphate) 6 Mg/Ml Jacey 30 Mg PO BID 5 Days Ventolin Hfa 18 GM Inh (Albuterol Sulfate) 90 Mcg/Act Aer 2 Puff INH Q4H PRN Review of Systems Except as stated in HPI: all other systems reviewed are Neg Physical Exam Narrative GENERAL: Well-nourished, well-developed patient in no apparent distress. SKIN: Warm and dry. HEAD: Atraumatic. Normocephalic. EYES: Pupils equal and round reactive to light and accommodation. No scleral icterus. No injection or drainage. ENT: No nasal bleeding or discharge. Mucous membranes pink and moist. TMs are clear with no sign of infection or perforation. No mastoid tenderness. Ear canals are intact bilaterally. No lymphadenopathy. Nostril mucosa is red and moist with clear mucus noted. No sinus tenderness to palpation noted. Tonsils are not enlarged or swollen. No ulvua Deviation. Tongue is midline. NECK: Trachea midline. No JVD. No meningeal signs noted CARDIOVASCULAR: Regular rate and rhythm. RESPIRATORY: No accessory muscle use. Clear to auscultation. Breath sounds equal bilaterally. GASTROINTESTINAL: Abdomen soft, non-tender, nondistended. Hepatic and splenic margins not palpable. MUSCULOSKELETAL: Extremities without clubbing, cyanosis, or edema. No obvious deformities. NEUROLOGICAL: Awake and alert. No obvious cranial nerve deficits. Motor grossly within normal limits. Five out of 5 muscle strength in the arms and legs. Normal speech. PSYCHIATRIC: Appropriate mood and affect; insight and judgment normal. Data Data Last Documented VS Vital Signs Date Time Temp Pulse Resp B/P (MAP) Pulse Ox O2 Delivery O2 Flow Rate FiO2 08/08/17 17:01 97.8 86 16 129/89 (102) 98 Orders Orders Influenzae A/B Antigen (08/08/17 17:35) Ed Discharge Order (08/08/17 18:42) MDM Medical Decision Making Medical Screen Exam Complete: Yes Emergency Medical Condition: Yes Medical Record Reviewed: Yes Interpretation(s) Flu was negative Differential Diagnosis Influenza versus sinusitis versus bronchitis versus asthma Narrative Course 27-year-old male that presents to the ED for evaluation of cold like symptoms. Patient was properly examined and was found to have signs and symptoms consistent with appears to be upper respiratory infection. Influenza test was done and was negative. Patient was reassured. At this time patient will be treated for this with azithromycin and prednisone to cover for bronchitis. Follow-up with PCP. See ED worsening symptoms. Patient states that he has enough inhalers at home. Diagnosis Primary Impression: Bronchitis Referrals: Primary Care Physician 2 days Patient Instructions: General Instructions Additional Instructions: Motrin and Tylenol for pain and fever. You can use [id number] antihistamine as well as well as Mucinex as needed for runny nose and congestion. Cough drops for cough as needed. Drink plenty of fluids. Follow-up with PCP. See ED for worsening symptoms. Med/Other Pt SpecificInfo: Prescription(s) given Scripts Prednisone (Prednisone) 20 Mg Tab 20 MG PO BID for 5 Days, #10 TAB 0 Refills Prov: Gerard Driscoll MD 08/08/17 Azithromycin (Azithromycin) 250 Mg Tab 250 MG PO DIRECTED for Infection, #6 TAB 0 Refills Take 2 tabs (500 mg) on day 1 then 1 tab daily x 4 days. Prov: Gerard Driscoll MD 08/08/17 Oseltamivir Liq (Tamiflu Liq) 6 Mg/Ml Jacey 30 MG PO BID for Mgmt Viral Infection for 5 Days, ML 0 Refills Prov: Gerard Driscoll MD 08/08/17 Disposition: 01 DISCHARGE HOME Condition: Stable Nahid Esteves Aug 08, 2017 18:46
== END 2017-08-08 18:51 | disposition home or self-care (01) ==
LOC: PHED 16:58 → PHEFT 18:51
DX: J40 Bronchitis, not specified as acute or chronic (principal)
CPT/HCPCS: 87804; 99283

== ENCOUNTER 2017-09-09 13:55 | Emergency (ER) | payer SELFPAY ==
[~2017-09-09] VITALS: Ht 195.6 cm; Wt 109.0 kg
[~2017-09-09 13:55] MED LIST changes: +AZIT250T3 PO; +PRED20 PO
[2017-09-09 14:03] VITALS: BP 148/103; PULSE 86; RESP 16; TEMP 97.9; O2SAT 98
== END 2017-09-09 15:10 | disposition left against medical advice (07) ==
LOC: PHED 13:55
DX: R42 Dizziness and giddiness (principal)
CPT/HCPCS: 99281

== ENCOUNTER 2017-09-12 15:15 | Emergency (ER) | payer SELFPAY ==
[2017-09-12 15:23] VITALS: BP 127/93; PULSE 84; RESP 16; TEMP 97.4; O2SAT 98
== END 2017-09-12 16:07 | disposition left against medical advice (07) ==
LOC: NED 15:15
DX: R42 Dizziness and giddiness (principal); Z53.21 Procedure and treatment not carried out due to patient leaving prior to being seen by health care provider
CPT/HCPCS: 99281